=== PATIENT | female | born 1955 | race Caucasian/White ===

== ENCOUNTER 2025-03-05 06:29 | Day surgery (SDC) | payer OTHER ==
[~2025-03-05] VITALS: Ht 160 cm; Wt 66.0 kg
[~2025-03-05 06:29] MED LIST: AMLO-383 PO; FAMO40TA7 PO; HYDR-4527 PO; ROSU10TA72 PO; SERT-439 PO
[2025-03-05] MEDS ORDERED: SODIUM CHLORIDE 0.9% 1,000 ML ONE (06:32)
[2025-03-05] MEDS ORDERED: FLUT12AE3 IH (07:32)
[2025-03-05] MEDS ORDERED: FLUT16H NASAL (07:32)
[2025-03-05] MEDS ORDERED: ESOM20CA51 PO (07:32)
[2025-03-05] MEDS ORDERED: DULO-114 PO (07:32)
[2025-03-05] MEDS ORDERED: GABA-1181 PO (07:32)
[2025-03-05] MEDS ORDERED: MONT-40 PO (07:32)
[2025-03-05] MEDS ORDERED: FentaNYL CITRATE PF 100 MCG/2 ML VIAL ONE (08:38)
[2025-03-05] MEDS ORDERED: MIDAZOLAM HCL 2 MG/2 ML VIAL ONE (08:39)
[2025-03-05 09:30] VITALS: PULSE 94; RESP 18; O2SAT 100
[2025-03-05] MEDS: SODIUM CHLORIDE 0.9% 1,000 ML IV ONE (09:36)
[2025-03-05] MEDS: MethylPREDNISolone SOD SUCC 125 MG/2 ML VIAL IVP ONE (10:21)
[2025-03-05] MEDS ORDERED: LIDOCAINE 4% 50 ML SOLUTION ONE (12:00)
[2025-03-05] MEDS ORDERED: LIDOCAINE 2% 11 ML JELLY ONE (12:00)
[2025-03-05] MEDS ORDERED: BENZOCAINE 20% 50 MCG/SPRAY 57 GM ONE (12:00)
== END 2025-03-05 13:05 | disposition still patient (30) ==
LOC: SURGERY 06:29
PROVIDERS: ATTEND Internal Medicine Critical Care Medicine
DX: R05.3 Chronic cough (principal); R04.2 Hemoptysis; J38.4 Edema of larynx; B37.0 Candidal stomatitis; E78.00 Pure hypercholesterolemia, unspecified; I10 Essential (primary) hypertension; Z98.890 Other specified postprocedural states; Z90.49 Acquired absence of other specified parts of digestive tract; Z90.710 Acquired absence of both cervix and uterus; Z87.01 Personal history of pneumonia (recurrent); Z79.899 Other long term (current) drug therapy
CPT/HCPCS: 31623; 87206; 87101; 87220; 87070; 88108; 31624; 71045; 87015; J3010; J2250; J2919; J7030; Z7610

== ENCOUNTER 2025-10-06 06:28 | Day surgery (SDC) | payer OTHER ==
[~2025-10-06] VITALS: Ht 159 cm; Wt 66.0 kg
[~2025-10-06 06:28] MED LIST changes: +DULO30CA62 PO; +ESOM20CA51 PO; +FLUT12AE3 IH; +FLUT16H NASAL; +GABA-1181 PO; -HYDR-4527 PO; +HYDR25TA83 PO; +MONT-40 PO; -ROSU10TA72 PO
[2025-10-06] MEDS ORDERED: SODIUM CHLORIDE 0.9% 1,000 ML ONE (06:53)
[2025-10-06] MEDS ORDERED: SODIUM CHLORIDE 0.9% 1,000 ML IV ONE (07:00)
[2025-10-06] MEDS: SODIUM CHLORIDE 0.9% 1,000 ML IV ONE (07:20)
[2025-10-06] MEDS ORDERED: FentaNYL CITRATE PF 100 MCG/2 ML VIAL ONE (08:25)
[2025-10-06] MEDS ORDERED: MIDAZOLAM HCL 2 MG/2 ML VIAL ONE (08:25)
[2025-10-06 09:40] VITALS: PULSE 64; RESP 18; O2SAT 99
[2025-10-06] MEDS ORDERED: LIDOCAINE 4% 50 ML SOLUTION ONE (12:00)
[2025-10-06] MEDS ORDERED: LIDOCAINE 2% 11 ML JELLY ONE (12:00)
[2025-10-06] MEDS ORDERED: ALBUTEROL SULFATE 2.5 MG/0.5 ML NEB SOLUTION NEB ONE (12:00)
[2025-10-06] MEDS ORDERED: BENZOCAINE 20% 50 MCG/SPRAY 57 GM ONE (12:00)
== END 2025-10-06 14:35 | disposition home or self-care (01) ==
LOC: SURGERY 06:28
PROVIDERS: ATTEND Internal Medicine Critical Care Medicine
DX: J38.4 Edema of larynx (principal); B37.0 Candidal stomatitis; I70.0 Atherosclerosis of aorta; M47.814 Spondylosis without myelopathy or radiculopathy, thoracic region; R05.3 Chronic cough; R06.2 Wheezing; Q25.46 Tortuous aortic arch
CPT/HCPCS: 31623; 87206; 87101; 87220; 87070; 31624; 71045; 87015; J3010; J2250; J2919; J7030; 88108; J7613; Z7610